=== PATIENT | male | born 1955 | race Native Hawaiian/Other Pacific Islander ===

== ENCOUNTER → 2020-10-22 | Outpatient (CLI) | payer SELFPAY ==
--- NOTE | 2020-10-22 12:31 | REPPI ---
INDICATION: R09.89 RJONCHI AT BOTH LUNG BASES PEDAL EDEMA COMPARISON: None. TECHNIQUE: PA and lateral. FINDINGS: Mediastinum and cardiac silhouette are grossly normal. Chronic interstitial changes are appreciated. Mild interstitial edema cannot be excluded. No focal consolidation or effusion. No pneumothorax. Old healed rib fractures noted. IMPRESSION: Increased interstitial markings are suggested. Differential diagnosis includes early interstitial edema. No consolidation or effusion. <Electronically signed by Jt Keys > 10/22/20 [id number]
== END ==
LOC: M PLAIMG 12:13
PROVIDERS: ATTEND Physician Assistant
DX: R09.89 Other specified symptoms and signs involving the circulatory and respiratory systems (principal); R60.0 Localized edema

== ENCOUNTER → 2020-10-22 | Outpatient (REF) | payer SELFPAY ==
[2020-10-22 13:45] LABS: HEMATOCRIT 47.7 % (42.0-52.0); HEMOGLOBIN 14.8 g/dl (13.5-17.5); MEAN CORPUSCULAR HEMOGLOBIN 26.8 pg (27.0-33.0); MEAN CORPUSCULAR VOLUME 86.3 fl (80.0-96.0); PLATELET COUNT, AUTOMATED 268 10^3/uL (150-450); RED BLOOD COUNT 5.53 10^6/uL (4.30-6.10); WHITE BLOOD COUNT 11.6 10^3/uL (4.0-10.0)
[2020-10-22 14:17] LABS: ALBUMIN 3.9 GM/DL (3.2-5.2); ALT/SGPT 108 U/L (12-78); BILIRUBIN,TOTAL 0.4 MG/DL (0.2-1.0); BLOOD UREA NITROGEN 15 MG/DL (7-18); CALCIUM LEVEL 9.4 MG/DL (8.8-10.2); CARBON DIOXIDE LEVEL 28 MEQ/L (21-32); CHLORIDE LEVEL 105 MEQ/L (98-107); CREATININE FOR GFR 1.17 MG/DL (0.70-1.30); GLOMERULAR FILTRATION RATE > 60.0 (>49); GLUCOSE, FASTING 120 MG/DL (70-100); NT-PRO BNP 215 PG/ML (<125); POTASSIUM SERUM 3.9 MEQ/L (3.5-5.1); SODIUM LEVEL 140 MEQ/L (136-145); TOTAL PROTEIN 7.9 GM/DL (6.4-8.2)
== END ==
LOC: M SFHCPLAZ 12:06
PROVIDERS: ATTEND Physician Assistant
DX: R09.89 Other specified symptoms and signs involving the circulatory and respiratory systems (principal); R60.0 Localized edema; K21.9 Gastro-esophageal reflux disease without esophagitis

== ENCOUNTER 2021-01-24 02:32 | Emergency (ER) | payer SELFPAY ==
[2021-01-24] MEDS ORDERED: OMEP-221 (02:55)
[2021-01-24] MEDS ORDERED: EPINEPHrine 1MG/10ML SYRINGE 1.5IN IV STA (04:04)
[2021-01-24] MEDS ORDERED: SODIUM BICARBONATE 8.4% INJ 50 ML SYRINGE IV STA (04:04)
[2021-01-24 04:15] LABS: RSV AMPLIFICATION NEGATIVE (NEGATIVE)
== END 2021-01-24 05:15 | disposition expired ==
LOC: M ED 02:32
DX: I46.9 Cardiac arrest, cause unspecified (principal)

== ENCOUNTER → 2021-04-26 | Outpatient (REF) ==
[~2021-04-26] MED LIST: OMEP-221
== END ==
LOC: M LAB 13:14